=== PATIENT | female | born 1950 | race Caucasian/White ===

== ENCOUNTER 2021-11-21 14:38 | Emergency (ER) | payer MEDICARE, SELFPAY ==
--- NOTE | 2021-11-21 14:58 | PC.NURSE ---
pt arrived to the ed and checked in for covid symptoms. while triaging patient she stated she had no complaint to be evaluated, all she wanted was a covid infusion and to check and see if she was still positive. after explaining to patient that we no longer are during infusions patient decided she did not want to be seen by a provider. pt reassured that if she would like to be evaluated, she could be seen, but no infusion could be provided for her. pt declined visit.
[2021-11-21 15:02] VITALS: BP 0/0; PULSE 0; RESP 0; TEMP -17.7; TEMP 0; O2SAT 0
== END 2021-11-21 15:03 | disposition left against medical advice (07) ==
PROVIDERS: Emergency Provider Emergency Medicine; PCP Physician Assistant
DX: Z53.21 Procedure and treatment not carried out due to patient leaving prior to being seen by health care provider (principal)
CPT/HCPCS: G0463; 99211